=== PATIENT | male | born 1975 | race African-American/Black ===

== ENCOUNTER 2019-07-18 18:44 | Emergency (ER) | payer OTHER ==
[~2019-07-18] VITALS: Ht 185.4 cm; Wt 77.1 kg
[~2019-07-18 18:44] MED LIST: CIPROFLOXACIN500 M1 PO; FLAGYL500 MG PO; IBUPROFEN 600600 M1 PO; NOHOMEMEDICATIONS; NORCO 5-325 TA1 EACH PO; VENTOLIN17 GM INH
[2019-07-18] MEDS ORDERED: ZOLOFT25 MG PO (19:07)
[2019-07-18 19:34] LABS: ABSOLUTE NEUTROPHILS 5.9 thou/uL (1.4-8.2); BASOPHILS 0.6 % (0.0-2.0); EOSINOPHILS 0.7 % (0.0-3.0); HEMATOCRIT 45.3 % (42.0-52.0); HEMOGLOBIN 14.8 gm/dL (14.0-18.0); LYMPHOCYTES 23.3 % (24.0-44.0); MCH 30.1 pg (26.0-34.0); MCHC 32.7 g/dL (28.0-37.0); MCV 91.8 fL (80.0-100.0); PLATELET COUNT 184 thou/uL (150-400); POLYS 69.4 % (36.0-66.0); RBC 4.93 mil/uL (4.50-6.00); RDW 13.1 % (10.5-14.5); WBC 8.5 thou/uL (4.0-11.0)
[2019-07-18 19:37] LABS: CALCIUM 9.8 mg/dL (8.5-10.1); CREATININE 1.3 mg/dL (0.7-1.3); POTASSIUM 3.9 mmol/L (3.5-5.1)
[2019-07-18] MEDS ORDERED: ZOFRAN ODT4 MG PO (21:04)
[2019-07-18] MEDS ORDERED: IBUPROFEN 600600 M1 PO (21:04)
[2019-07-18 21:31] LABS: URINE BILIRUBIN NEGATIVE (Negative); URINE BLOOD 1+ (Negative); URINE CLARITY CLEAR; URINE COLOR YELLOW; URINE GLUCOSE-RANDOM* NEGATIVE (Negative); URINE KETONES 1+ (Negative); URINE LEUKOCYTES-REFLEX NEGATIVE (Negative); URINE NITRITE-REFLEX NEGATIVE (Negative); URINE PROTEIN (DIPSTICK) NEGATIVE (Negative)
[2019-07-18 21:40] VITALS: BP 145/90
[2019-07-18 21:47] LABS: CASTS None Seen /LPF (None Seen); CRYSTALS None Seen /LPF (None Seen); SQUAMOUS None Seen /LPF (0-3); URINE RBC 0-2 Rare /HPF (0-2)
[2019-07-18 21:48] LABS: BACTERIA-REFLEX 1-9 Few /HPF (None Seen); URINE WBC-REFLEX None Seen /HPF (0-5)
== END 2019-07-18 21:45 | disposition home or self-care (01) ==
LOC: ER 18:44
PROVIDERS: Nurse Practitioner Family
DX: B34.9 Viral infection, unspecified (principal)